=== PATIENT | female | born 1975 | race Asian ===

== ENCOUNTER 2020-07-08 14:14 | Emergency (ER) | payer MEDICAID ==
[~2020-07-08] VITALS: Ht 157.5 cm; Wt 60.3 kg
[2020-07-08 14:17] VITALS: BP 107/62
[2020-07-08] MEDS ORDERED: LIDOcaine 5% patch TP STA (15:54)
[2020-07-08] MEDS ORDERED: ketorolac tromethamine 15mg/ml inj. IM ONE (15:55)
[2020-07-08] MEDS ORDERED: LIDO700A32 TOP (16:45)
== END 2020-07-08 17:36 | disposition home or self-care (01) ==
LOC: ER 14:14
DX: S39.012A Strain of muscle, fascia and tendon of lower back, initial encounter (principal); M54.6 Pain in thoracic spine; G89.29 Other chronic pain; Z79.899 Other long term (current) drug therapy; W18.39XA Other fall on same level, initial encounter; Y93.89 Activity, other specified; Y92.89 Other specified places as the place of occurrence of the external cause; Y99.8 Other external cause status
CPT/HCPCS: 71046; 96372; 99283; J1885

== ENCOUNTER 2025-01-08 09:19 | Emergency (ER) | payer MEDICAID ==
[~2025-01-08] VITALS: Ht 157.5 cm; Wt 64.0 kg
[~2025-01-08 09:19] MED LIST: LIDO-52 TOP
[2025-01-08 09:35] VITALS: TEMP 98.3
[2025-01-08 10:13] LABS: URINE HCG NEGATIVE (NEG)
[2025-01-08 10:27] LABS: LEUKOCYTE ESTERASE ,URINE TRACE (Neg); NITRITES, URINE NEGATIVE (Neg); OCCULT BLOOD,URINE TRACE-INTACT (Neg)
[2025-01-08 10:34] LABS: UA COLLECTION TYPE CLN CATCH MIDSTREAM
[2025-01-08 10:35] LABS: SQUAMOUS EPITHELIAL CELL,UR FEW /LPF (FEW)
[2025-01-08] MEDS ORDERED: NITR100C PO (10:59)
--- NOTE | 2025-01-08 11:00 | Physician Documentation ---
History of Present Illness ~ Chief Complaint: Back Pain Stated Complaint: BACK PAIN Time Seen by MD: 10:51 OK to notify your PCP?: Yes Primary Medical Doctor: None Source: patient Mode of Arrival: POV Exam Limitations: no limitations HPI A 49-year-old female presents with right flank pain for the past few days. She denies any burning with urination, increased frequency, odor in urine. She does not have a history of frequent UTIs. She has not have a history of kidney stones. He states that the sharp pain was worse last night but has improved this morning but still lingers and is more of an ache sensation. Medication Reconciliation Allergies: Coded Allergies: No Known Allergies (Unverified , 01/08/25) Scheduled Lidocaine (Lidoderm), 1 PATCH TOP Q12H PRN Nitrofurantoin Macrocrystal (Nitrofurantoin), 1 CAP PO Q12H Past Medical History Past Medical History: No Pertinent History Review of Systems All Other Systems at this time: Reviewed and Negative Physical Exam Physical Exam Vital Signs: RN Vital Signs have been reviewed: Yes, Temperature: 98.3, Source: Temporal, Heart Rate: 71, Respiratory Rate: 16, BP: 125/63, Pulse Oximetry: 99, Weight: 64.000 Oxygen Flow Rate: 0 Pulse Oximetry Reflects: adequate oxygenation Physical Exam General: Alert, no distress. HEENT: No injection, moist mucous membranes. Neck: Full range of motion. Respiratory: No respiratory distress, equal chest rise and fall. Chest: No accessory muscle use. Cardiovascular: Regular rate and rhythm. Gastrointestinal: Nondistended. Back: Right CVA tenderness, no midline tenderness. Extremities: Normal range of motion, no deformity. Neurologic: Oriented x4. Psychiatric: Normal mood and affect. Skin: Normal color, warm and dry. Progress Results/Orders Reviewed/noted all lab results: Yes Results/Orders Vital Signs 01/08/25 09:35 Temp 98.3 Pulse 71 Resp 16 B/P (MAP) 125/63 Pulse Ox 99 O2 Flow Rate 0 Laboratory Tests Test 01/08/25 09:45 Urine Specimen Description Cln catch midstream Urine Color Yellow Urine Clarity Slightly cloudy Urine pH 6.0 Urine Specific Duff 1.015 Urine Protein Negative Urine Glucose (UA) Negative Urine Ketones Negative Urine Occult Blood Trace-intact Urine Nitrite Negative Urine Bilirubin Negative Urine Urobilinogen 0.2 Urine Leukocyte Esterase Trace H Urine RBC 3-10 Urine WBC 10-20 H Urine Squamous Epithelial Cells Few Urine Bacteria 3+ Urine Culture Indicated Indicated Volume Urine Centrifuged 10 ml Urine HCG, Qualitative Negative Urine Comment Medical Decision Making Additional information obtaine: old records Findings She does not have any urinary symptoms although her urinalysis shows but she does have a UTI. We discussed that her urine will be sent out for culture and we will contact her if we need to change the antibiotic. She is having some aching right flank pain with CVA tenderness on exam but otherwise normal exam, normal vitals, no signs of sepsis. Differential Dx:Considerations: Ectopic , Musculoskeletal pain, Pyelonephritis, Urinary obstruction, Urolithiasis, Renal infarction Departure Disposition: 01 HOME / SELF CARE / HOMELESS Impression: Primary Impression: UTI (urinary tract infection) Condition: Stable Discharge Instructions: Urinary Tract Infection, Adult, [id number] Additional Instructions: Take all antibiotics as prescribed and finish the course. Have sent your urine for culture which takes about 3 days to get the results. We will call you if we need to change your antibiotic to something different. Follow up with her primary care provider and return back here for any new or worsening symptoms. Recommend getting a repeat urinalysis in 2 weeks after you finish the a ntibiotics to make sure that the infection is fully cleared. Drink plenty of water. Referrals: NO PRIMARY CARE PROVIDER (PCP) Prescriptions Nitrofurantoin Macrocrystal (Nitrofurantoin) 100 Mg Capsule 1 CAP PO Q12H for 10 Days, #20 CAP 0 Refills Prov: VIDHI LIVE 01/08/25 Education Educated: Patient Educated regarding: diagnosis, treatment, prognosis, need for follow up Additional Comment Medical Screen Exam This patient recieved a medical screening examination. After reviewing the emilia marinelli's medical complaints with presenting symptoms and performing an appropriate physical examination, it was determined that no immediate life- threatening emergency medical condition is present. This individual is also not a women having contractions. Signature Scribe Signature: . Attestation: Scribed for Vidhi Live by Vidhi Beatty NP . 01/08/25 11:03 Parts of this note were created using [employer] voice recognition software program. While efforts were made to correct any mistakes made by this voice recognition software program, nonsensical phrases may remain in this note. In addition, there may be errors and syntax, grammar, content and spelling. VIDHI LIVE [facility] Jan 08, 2025 11:00
[2025-01-08 11:13] VITALS: BP 124/71; PULSE 71; RESP 16; O2SAT 99
== END 2025-01-08 11:14 | disposition home or self-care (01) ==
LOC: ER 09:19
DX: N39.0 Urinary tract infection, site not specified (principal)
CPT/HCPCS: 81001; 81025; 87077; 87088; 87186; 99283